=== PATIENT | male | born 1975 | race Caucasian/White ===

== ENCOUNTER 2022-04-15 07:56 | Outpatient (CLI) | payer OTHER, SELFPAY ==
[2022-04-15 12:31] LABS: Albumin* 4.6 g/dL (3.3-5.0); Chloride* 105 mmol/L (96-114); Sodium* 137 mmol/L (135-149)
[2022-04-15 12:32] LABS: Potassium* 5.1 mmol/L (3.6-5.1)
[2022-04-15 12:33] LABS: Cholesterol* 198 mg/dL (90-199)
[2022-04-15 12:34] LABS: Alanine Aminotransferase* 36 U/L (4-50); Alkaline Phosphatase* 94 U/L (40-150); Aspartate Amino Transferase* 32 U/L (12-35); Bilirubin Total* 0.6 mg/dL (0.1-1.5); Blood Urea Nitrogen* 15 mg/dL (5-24); Carbon Dioxide* 27 mmol/L (20-32); Creatinine* 1.1 mg/dL (0.5-1.5); Estimated Glomerular Filt Rate 85 ml/min; Glucose* 87 mg/dL (60-115); Total Protein* 7.3 g/dL (6.0-8.3); Triglycerides* 201 mg/dL (40-149)
[2022-04-15 12:35] LABS: Calcium* 9.3 mg/dL (8.4-10.6); HDL Cholesterol* 30 mg/dL (>=40); LDL Cholesterol Calculated 128 mg/dL (<100)
[2022-04-15 13:06] LABS: PSA Screen* 0.83 ng/mL (0.10-4.00)
[2022-04-16 16:25] LABS: Sex Hormone Binding Globulin 22 nmol/L (17-56); Testosterone, Adult Male 341 ng/dL (300-890); Testosterone, Free Calculation 75 pg/mL (47-244); Testosterone, Percentage Free 2.2 % (1.6-2.9)
== END 2022-04-15 07:57 | disposition home or self-care (01) ==
LOC: LKVREF 07:56
PROVIDERS: PCP Family Medicine; Visit Provider Family Medicine
DX: D72.829 Elevated white blood cell count, unspecified (principal); E34.9 Endocrine disorder, unspecified; R53.81 Other malaise; R53.83 Other fatigue; Z13.6 Encounter for screening for cardiovascular disorders; Z12.5 Encounter for screening for malignant neoplasm of prostate
CPT/HCPCS: 80053; 80061; 84153; 84270; 84402; 84403

== ENCOUNTER 2022-04-19 10:36 | Outpatient (CLI) | payer OTHER, SELFPAY ==
[2022-04-19 11:40] VITALS: BP 116/74; PULSE 97; RESP 20
== END 2022-04-19 10:37 | disposition home or self-care (01) ==
LOC: STRESS 10:36
PROVIDERS: PCP Family Medicine; Visit Provider Family Medicine
DX: R07.9 Chest pain, unspecified (principal)
CPT/HCPCS: 93016; 93017

== ENCOUNTER 2022-04-19 11:41 | Emergency (ER) | payer OTHER, SELFPAY ==
[2022-04-19] VITALS (16 sets, daily range): BP systolic 107–124; BP diastolic 69–77; PULSE 63–77; RESP 16–18; O2SAT 93–97
--- NOTE | 2022-04-19 11:46 | CRLHL7_ITS ---
For Patients: As a result of the Cures Act, medical imaging exams and procedure reports are released immediately into your electronic medical record. You may view this report before your referring provider. If you have questions, please contact your health care provider. INDICATION: Chest pain after stress test. TECHNIQUE: Chest 2 views. COMPARISON: Chest x-ray from 11/13/2020. FINDINGS: Lungs: Clear lungs. No consolidation. Pleura: No pleural effusion or pneumothorax. Heart and Mediastinum: The cardiomediastinal silhouette is mildly enlarged. The vessels are unremarkable. Bones: Unremarkable. IMPRESSION: No acute cardiopulmonary disease. Dictated by Sriram Antony MD @ 04/19/2022 12:39:23 PM (Electronically Signed)
--- NOTE | 2022-04-19 12:08 | ED.NURSE ---
Pt to radiology
[2022-04-19 12:12] LABS: Basophils Absolute Auto 0.07 K/uL (0.00-0.30); Basophils Percent Auto 0.7 % (0.0-3.0); Eosinophils Absolute Auto 0.36 K/uL (0.00-0.50); Eosinophils Percent Auto 3.7 % (0.0-7.0); Hematocrit 41.8 % (37.0-53.0); Hemoglobin* 14.6 gm/dL (13.5-17.5); Immature Granulocytes Abs Auto 0.07 K/uL (0.00-0.30); Immature Granulocytes Pct Auto 0.7 %; Lymphocytes Absolute Auto 2.85 K/uL (0.90-2.90); Lymphocytes Percent Auto 29.4 % (20-44); Mean Corpuscular HGB Conc 35 gm/dL (32-36); Mean Corpuscular Hemoglobin 29 pg (26-34); Mean Corpuscular Volume 84 fL (80-100); Monocytes Percent Auto 7.6 % (0.0-11.0); Neutrophils Percent Auto 57.9 % (42.0-72.0); Platelet Count* 184 K/uL (140-440); RDW Coefficient of Variation % 11.5 % (11.5-15.5); Red Blood Count 4.98 m/uL (4.30-5.90); White Blood Count* 9.69 K/uL (4.50-11.00)
[2022-04-19 12:17] LABS: Slide Review Reflex No
[2022-04-19] MEDS: ASPIRIN 81 MG TAB.CHEW 324 MG PO (12:22)
[2022-04-19 12:24] LABS: Chloride* 101 mmol/L (96-114); Potassium* 4.1 mmol/L (3.6-5.1); Sodium* 133 mmol/L (135-149)
[2022-04-19 12:27] LABS: Creatinine* 0.9 mg/dL (0.5-1.5); Estimated Glomerular Filt Rate 108 ml/min
[2022-04-19 12:28] LABS: Blood Urea Nitrogen* 20 mg/dL (5-24); Calcium* 8.5 mg/dL (8.4-10.6); Carbon Dioxide* 24 mmol/L (20-32); Glucose* 90 mg/dL (60-115)
[2022-04-19 12:36] LABS: D Dimer Quantitative* < 0.27 ug/ml (0.00-0.50)
--- NOTE | 2022-04-19 13:42 | ED_ITS ---
HPI - Chest Pain General Date Seen: 04/19/22 Chief Complaint: Chest Pain Stated Complaint: Chest pain Time Seen by Provider: 04/19/22 11:46 Source: patient Mode of arrival: ambulatory Limitations: no limitations History of Present Illness HPI narrative: Patient is a very nice 46-year-old gentleman who was undergoing a regular stress test today by myself he developed left-sided chest discomfort with radiation to his left shoulder during the recovery period, he did pretty well on the treadmill and got to 9 minutes before I stop the test due to of attainment of maximum heart rate and fulfillment of protocol. He did not have any shortness of breath associated with this, no other symptoms such as coughing wheezing shortness of breath. Vacation for stress test was feeling out his shape MD complaint: chest pain Prior episodes: No Onset: during exertion Risk Factors Thoracic aortic dissection risk factors: none Related Data Home Medications Medication Instructions Recorded Confirmed aripiprazole 20 mg tablet 20 mg PO QDAY 04/08/22 04/08/22 aripiprazole 5 mg tablet 5 mg PO QDAY 04/08/22 04/08/22 ascorbic acid (vitamin C) 500 mg 500 mg PO DAILY 04/08/22 04/08/22 chewable tablet bupropion HCl 300 mg 24 hr tablet, 300 mg PO DAILY 04/08/22 04/08/22 extended release escitalopram oxalate 20 mg tablet 20 mg PO DAILY 04/08/22 04/08/22 testosterone 12.5 mg/1.25 gram per 2 pump topical DAILY 04/08/22 04/08/22 actuation (1%) transdermal gel pump Previous Rx's Medication Instructions Recorded rivaroxaban 20 mg tablet (Xarelto) 20 mg PO QDAY #90 tabs 12/02/21 ampicillin 500 mg capsule 500 mg PO TID #30 caps 04/08/22 armodafinil 250 mg tablet 250 mg PO QAM #90 tabs 04/08/22 clindamycin HCl 150 mg capsule 150 mg PO TID #30 caps 04/08/22 tadalafil 5 mg tablet 5 mg PO .PRN PRN sexual activity 04/18/22 #90 tabs Allergies Allergy/AdvReac Type Severity Reaction Status Date / Time No Known Allergies Allergy Unknown Unknown Verified 04/08/22 11:17 Review of Systems Status of ROS Reports: 10 or more systems reviewed and unremarkable except as noted in History and below PFSH PFSH Medical History Encounter for annual physical exam Encounter for screening examination for sexually transmitted disease Idiopathic hypersomnia Family History Father Pulmonary embolism Social History Smoking Status: Current every day smoker What tobacco products do you use: cigarettes Smoking packs per day: 1 Smoking cigarettes per day: 20.0 Do you use any of these nicotine containing products: None Second hand tobacco smoke exposure: No How often do you have a drink containing alcohol: never AUDIT-C Alcohol total score: 0 Non-prescribed substance use: denies use Exam Narrative Exam Narrative: Patient is seen in room AP knees in no apparent distress, oropharynx is normal, neck is supple chest is clear heart sounds are normal, abdomen is soft and obese there is no guarding no past splenomegaly, skin was no petechiae or rashes moves all extremities independently well, Const Vital Signs, click to edit/add: Vital Signs - 24 hr 04/19/22 11:47 04/19/22 12:28 04/19/22 12:24 Pulse Rate 74 Respiratory Rate 16 18 Blood Pressure 107/77 Blood Pressure [Right Upper Arm] 121/70 107/77 Pulse Oximetry 94 95 94 Oxygen Delivery Method Room Air Room Air 04/19/22 12:25 04/19/22 12:30 04/19/22 12:31 Pulse Rate 72 73 77 Respiratory Rate Blood Pressure 122/69 Blood Pressure [Right Upper Arm] Pulse Oximetry 95 94 96 Oxygen Delivery Method 04/19/22 12:45 04/19/22 13:00 04/19/22 13:01 Pulse Rate 69 72 72 Respiratory Rate Blood Pressure 111/75 Blood Pressure [Right Upper Arm] Pulse Oximetry 94 93 94 Oxygen Delivery Method 04/19/22 13:15 04/19/22 13:30 04/19/22 13:31 Pulse Rate 69 74 76 Respiratory Rate Blood Pressure 124/77 Blood Pressure [Right Upper Arm] Pulse Oximetry 93 93 93 Oxygen Delivery Method 04/19/22 13:45 04/19/22 14:00 04/19/22 14:01 Pulse Rate 65 72 63 Respiratory Rate Blood Pressure 119/76 Blood Pressure [Right Upper Arm] Pulse Oximetry 95 94 95 Oxygen Delivery Method 04/19/22 14:15 Pulse Rate 71 Respiratory Rate Blood Pressure Blood Pressure [Right Upper Arm] Pulse Oximetry 97 Oxygen Delivery Method Documenting provider has reviewed patient's vital signs: yes Course Reevaluation(s) Reevaluation #1: Initial troponin was negative, EKG shows no acute findings, we will repeat this 90 minutes in if this is normal then I think we can let him go, and follow-up with primary care, I would suggest likely I Boni in the outpatient setting, to further delineate this. I think he is at low risk, however given his high workload, further testing would be needed. Time: 13:45 Vital Signs Vital signs: Initial Vital Signs Respiratory Rate 16 04/19/22 11:47 Blood Pressure 121/70 04/19/22 11:47 Blood Pressure Mean 87 04/19/22 11:47 Blood Pressure Position Semi-Fowlers 04/19/22 11:47 Pulse Oximetry 94 04/19/22 11:47 Oxygen Delivery Method 04/19/22 11:47 Vital Signs Respiratory Rate 16 04/19/22 11:47 Blood Pressure 121/70 04/19/22 11:47 Pulse Oximetry 94 04/19/22 11:47 Oxygen Delivery Method 04/19/22 11:47 Pulse Rate 71 04/19/22 14:15 Respiratory Rate 18 04/19/22 12:28 Blood Pressure 119/76 04/19/22 14:01 Pulse Oximetry 97 04/19/22 14:15 Oxygen Delivery Method 04/19/22 12:28 MDM - Chest Pain MDM Narrative Medical decision making narrative: During the evaluation of this patient I considered multiple differential diagnosis is. The life-threatening differential diagnosis include coronary disease/[place], pulmonary embolism, pneumothorax, pneumonia, and aortic dissection. Other differential diagnosis included but were not limited to pericarditis, myocarditis, chest wall pain, GERD, esophageal rupture, rib fracture contusion, pleurisy, as well as other etiologies. Medical Records Data Attestation: I reviewed the patient's medical records. Lab Data Attestation: I reviewed the patient's lab results. Labs: Lab Results 04/19/22 04/19/22 04/19/22 Range/Units 12:00 12:00 12:00 WBC 9.69 (4.50-11.00) K/uL RBC 4.98 (4.30-5.90) m/uL Hgb 14.6 (13.5-17.5) gm/dL Hct 41.8 (37.0-53.0) % MCV 84 (80-100) fL MCH 29 (26-34) pg MCHC 35 (32-36) gm/dL RDW Coeff of Levi 11.5 (11.5-15.5) % Plt Count 184 (140-440) K/uL Neut % (Auto) 57.9 (42.0-72.0) % Lymph % (Auto) 29.4 (20-44) % [place] % (Auto) 7.6 (0.0-11.0) % Eos % (Auto) 3.7 (0.0-7.0) % Baso % (Auto) 0.7 (0.0-3.0) % Neut # (Auto) 5.60 (1.7-7.0) K/uL Lymph # (Auto) 2.85 (0.90-2.90) K/uL [place] # (Auto) 0.70 (0.00-0.90) K/UL Eos # (Auto) 0.36 (0.00-0.50) K/uL Baso # (Auto) 0.07 (0.00-0.30) K/uL Abs Immat Gran (auto) 0.07 (0.00-0.30) K/uL Imm/Tot Granulo (auto) 0.7 % D-Dimer Quant (PE/DVT) < 0.27 (0.00-0.50) ug/ml Sodium (135-149) mmol/L Potassium (3.6-5.1) mmol/L Chloride (96-114) mmol/L Carbon Dioxide (20-32) mmol/L BUN (5-24) mg/dL Creatinine (0.5-1.5) mg/dL Estimated GFR ml/min Glucose (60-115) mg/dL Calcium (8.4-10.6) mg/dL POC Troponin I 0.00 L (0.01-0.04) ng/ml 04/19/22 04/19/22 Range/Units 12:00 13:30 WBC (4.50-11.00) K/uL RBC (4.30-5.90) m/uL Hgb (13.5-17.5) gm/dL Hct (37.0-53.0) % MCV (80-100) fL MCH (26-34) pg MCHC (32-36) gm/dL RDW Coeff of Levi (11.5-15.5) % Plt Count (140-440) K/uL Neut % (Auto) (42.0-72.0) % Lymph % (Auto) (20-44) % [place] % (Auto) (0.0-11.0) % Eos % (Auto) (0.0-7.0) % Baso % (Auto) (0.0-3.0) % Neut # (Auto) (1.7-7.0) K/uL Lymph # (Auto) (0.90-2.90) K/uL [place] # (Auto) (0.00-0.90) K/UL Eos # (Auto) (0.00-0.50) K/uL Baso # (Auto) (0.00-0.30) K/uL Abs Immat Gran (auto) (0.00-0.30) K/uL Imm/Tot Granulo (auto) % D-Dimer Quant (PE/DVT) (0.00-0.50) ug/ml Sodium 133 L (135-149) mmol/L Potassium 4.1 (3.6-5.1) mmol/L Chloride 101 (96-114) mmol/L Carbon Dioxide 24 (20-32) mmol/L BUN 20 (5-24) mg/dL Creatinine 0.9 (0.5-1.5) mg/dL Estimated GFR 108 ml/min Glucose 90 (60-115) mg/dL Calcium 8.5 (8.4-10.6) mg/dL POC Troponin I 0.00 L (0.01-0.04) ng/ml Discharge Plan Discharge Clinical Impression: Atypical chest pain Patient Disposition: Home, Self-Care Instructions: Chest Pain (DC) Additional Instructions: Home, rest, follow-up with your ordering provider. Return here if ongoing chest pain or other symptoms, but her EKG and tests were all negative. Would suggest the chemical stress test in the future, it is noted as a walking Lexiscan. Prescriptions: No Action Xarelto 20 mg tablet 20 mg PO QDAY Qty: 90 1RF Rx Instructions: must administer with evening meal testosterone 12.5 mg/ 1.25 gram (1 %) gel in metered-dose pump 2 pump topical DAILY bupropion HCl 300 mg tablet extended release 24 hr 300 mg PO DAILY aripiprazole 20 mg tablet 20 mg PO QDAY Rx Instructions: take along with 5mg aripiprazole 5 mg tablet 5 mg PO QDAY Rx Instructions: take along with 20mg tab escitalopram oxalate 20 mg tablet 20 mg PO DAILY ascorbic acid (vitamin C) 500 mg tablet,chewable 500 mg PO DAILY clindamycin HCl 150 mg capsule 150 mg PO TID Qty: 30 0RF ampicillin 500 mg capsule 500 mg PO TID Qty: 30 0RF armodafinil 250 mg tablet 250 mg PO QAM Qty: 90 1RF tadalafil 5 mg tablet 5 mg PO .PRN PRN (Reason: sexual activity) Qty: 90 3RF Rx Instructions: administer approximately 30min before sexual activity; do not use more than 1 dose per 24hrs Follow Up/Referrals: Baldomero Fontenot MD [Primary Care Provider] - Stand Alone Forms: [employer] Info Instructions
== END 2022-04-19 14:23 | disposition home or self-care (01) ==
PROVIDERS: Emergency Provider Family Medicine; PCP Family Medicine
DX: R07.89 Other chest pain (principal)
CPT/HCPCS: 36415; 71046; 80048; 85025; 85379; 93005; 99284; 99285; A9270

== ENCOUNTER 2022-08-02 18:55 | Outpatient (CLI) | payer OTHER, SELFPAY | END 2022-08-02 18:56 | disposition home or self-care (01) | LOC: LKVREF 18:57 | PROVIDERS: PCP Family Medicine; Visit Provider Emergency Medicine | DX: M25.50 Pain in unspecified joint (principal); R19.7 Diarrhea, unspecified | CPT/HCPCS: 86140 ==

== ENCOUNTER 2023-03-21 23:25 | Outpatient (CLI) | payer OTHER, SELFPAY | END 2023-03-21 23:26 | disposition home or self-care (01) | LOC: AMB 03-27 10:01 | PROVIDERS: PCP Family Medicine; Visit Provider Emergency Medicine Emergency Medical Services | DX: R44.0 Auditory hallucinations (principal) | CPT/HCPCS: A0425; A0427 ==